=== PATIENT | male | born 1950 | race Caucasian/White ===

== ENCOUNTER → 2019-09-05 | Outpatient (CLI) | payer OTHER, BC ==
[~2019-09-05] MED LIST: ACETAMINOPHEN325 M1 PO; AMBEREN; ASPIRIN325; BENICAR HCT 201 EACH PO; COREG CR80 MG PO; COREG25 MG PO; FISHOIL; IMDUR 60 MG TAB60 M1 PO; IRBESARTAN-HCT1 EACH PO; LEVAQUIN 500 M500 M2 PO; LIPITOR40 MG PO; NIFEDICAL XL30 MG PO; NORVASC5 MG PO; TRICOR145 MG PO; VASCEPA1 GM PO; ZETIA10 MG PO
== END ==
LOC: SJCVCIMAG 10:35
DX: I65.23 Occlusion and stenosis of bilateral carotid arteries (principal); I25.10 Atherosclerotic heart disease of native coronary artery without angina pectoris; I73.9 Peripheral vascular disease, unspecified; R00.1 Bradycardia, unspecified; I10 Essential (primary) hypertension; E78.5 Hyperlipidemia, unspecified; Z95.5 Presence of coronary angioplasty implant and graft; Z82.49 Family history of ischemic heart disease and other diseases of the circulatory system

== ENCOUNTER → 2021-02-04 | Outpatient (CLI) | payer OTHER, BC | LOC: SJCVCIMAG 09:18 | PROVIDERS: ATTEND Internal Medicine Cardiovascular Disease | DX: I25.10 Atherosclerotic heart disease of native coronary artery without angina pectoris (principal); E78.5 Hyperlipidemia, unspecified; Z95.1 Presence of aortocoronary bypass graft ==